=== PATIENT | male | born 1935 | race Caucasian/White ===

== ENCOUNTER 2018-06-05 11:52 | Emergency (ER) | payer MEDICARE, OTHER ==
[2018-06-05 12:06] VITALS: BP 172/110
[2018-06-05] MEDS ORDERED: Benzoin Compound STICK TOPICAL ONE (13:25)
--- NOTE | 2018-06-05 13:41 | UC ---
Laceration HPI - HPI Summary HPI Summary: 83 yo male was on b-ball court with grand kids tried to catch a ball and slipped sustained a laceration to vtx of scalp no ALVAREZ no LOC denies other injury no neck pain - History Of Current Complaint Chief Complaint: UCLaceration Stated Complaint: HEAD INJURY Time Seen by Provider: 06/05/18 12:52 Hx Obtained From: Patient Laceration Location: Head Mechanism Of Injury: Blunt Trauma Onset/Duration: Sudden Onset Severity: Mild Pain Intensity: 0 Pain Scale Used: 0-10 Numeric Head: 1 - irregular laceration - Allergies/Home Medications Allergies/Adverse Reactions: Allergies Allergy/AdvReac Type Severity Reaction Status Date / Time No Known Allergies Allergy Verified 11/17/12 19:25 PMH/Surg Hx/FS Hx/Imm Hx Previously Healthy: Yes - Surgical History Surgical History: None - Family History Known Family History: Positive: Hypertension - Social History Alcohol Use: Occasionally Substance Use Type: None Smoking Status (MU): Former Smoker Review of Systems All Other Systems Reviewed And Are Negative: Yes Constitutional: Positive: Negative Skin: Positive: Negative Eyes: Positive: Negative ENT: Positive: Negative Respiratory: Positive: Negative Cardiovascular: Positive: Negative Gastrointestinal: Positive: Negative Genitourinary: Positive: Negative Motor: Positive: Negative Neurovascular: Positive: Negative Musculoskeletal: Positive: Negative Neurological: Positive: Negative Psychological: Positive: Negative Physical Exam Triage Information Reviewed: Yes Appearance: Well-Appearing, No Pain Distress, Well-Nourished Vital Signs: Initial Vital Signs Temp 98.8 F 06/05/18 12:03 Pulse 93 06/05/18 12:03 Resp 16 06/05/18 12:03 BP 172/110 06/05/18 12:03 Pulse Ox 100 06/05/18 12:03 Vital Signs Reviewed: Yes Eyes: Positive: Conjunctiva Clear ENT: Negative: Hearing grossly normal - decreased, Nasal congestion, Nasal drainage, Trismus, Muffled voice, Hoarse voice Neck: Positive: Supple, Nontender, No Lymphadenopathy Respiratory: Positive: Lungs clear, Normal breath sounds, No respiratory distress, No accessory muscle use Cardiovascular: Positive: RRR, No Murmur Musculoskeletal: Positive: ROM Intact, No Edema Neurological: Positive: Alert, Muscle Tone Normal Psychological Exam: Normal Skin Exam: Other - see image Laceration Repair - Laceration Repair 1 Description: Irregular Laceration Size After Repair: Length (cm) - 1.9, Width (mm) - 2, Depth (mm) - 3 Modified For Repair: No Cleansing Completed Via Routine Prep: Yes Irrigation With Pressure Irrigation Device: Yes Closure Material: SteriStrips Laceration Course/Dx - Diagnosis Provider Diagnosis: Scalp laceration Discharge - Sign-Out/Discharge Documenting (check all that apply): Patient Departure All imaging exams completed and their final reports reviewed: No Studies - Discharge Plan Condition: Stable Disposition: HOME Patient Education Materials: [place] (ED) Referrals: Nato Bello MD [Primary Care Provider] - If Needed - Billing Disposition and Condition Condition: STABLE Disposition: Home
== END 2018-06-05 13:45 | disposition home or self-care (01) ==
LOC: UCEAST 11:52
DX: S01.01XA Laceration without foreign body of scalp, initial encounter (principal); W01.0XXA Fall on same level from slipping, tripping and stumbling without subsequent striking against object, initial encounter; Y93.67 Activity, basketball; Y92.310 Basketball court as the place of occurrence of the external cause; Z87.891 Personal history of nicotine dependence
CPT/HCPCS: 99212; G0463

== ENCOUNTER 2019-05-08 09:19 | Inpatient (IN) | payer MEDICARE, OTHER ==
[2019-05-08 09:55] LABS: Urine Appearance Cloudy; Urine Bilirubin Negative (Negative); Urine Blood Negative (Negative); Urine Color Yellow; Urine Glucose Negative (Negative); Urine Ketones Negative (Negative); Urine Nitrite Negative (Negative); Urine Protein Negative (Negative); Urine Urobilinogen Negative (Negative)
--- NOTE | 2019-05-08 10:16 | ED ---
Altered Mental Status - HPI Summary HPI Summary: This patient is an 83 year old male accompanied by his daughter presenting [place] [facility] with increased confusion over the last few days. Daughter states he has an infection in his left arm and is taking augmentin for it. Daughter states she contacted PCP who stated it is likely dehydration. Denies vomiting, diarrhea and fever. Patient has a Hx of mild dementia. She states he had pneumonia last year and experienced the same type of confusion when he was undergoing treatment, states the physician at the time states it may have been secondary to fever. 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 Hx From Patient Unobtainable Due To: Dementia Aggravating Factor(s): Medication Change - Allergies/Home Medications Allergies/Adverse Reactions: Allergies Allergy/AdvReac Type Severity Reaction Status Date / Time shellfish derived Allergy Anaphylatic Verified 05/08/19 09:37 Shock Home Medications: Home Medications Aspirin TAB* [Aspirin 325 MG TAB*] 325 mg PO DAILY 12/09/14 [History Confirmed 05/08/19] [place]-3/Dha/Epa/Fish Oil [Fish Oil] 1,200 mg PO DAILY 12/09/14 [History Confirmed 05/08/19] Amoxicillin/Clavulanate TAB* [Augmentin TAB 875*] 875 mg PO BID 05/08/19 [ History Confirmed 05/08/19] Bicalutamide (NF) [Casodex (NF)] 50 mg PO DAILY 05/08/19 [History Confirmed 06/23] Ulisses/D3/Mag11/Zinc/Manager Advertising/Simone/Bor [Caltrate 600+D Plus] 1 tab PO DAILY 05/08/19 [ History Confirmed 05/08/19] Citalopram TAB* [CeleXA TAB*] 20 mg PO DAILY 05/08/19 [History Confirmed ] Losartan Potassium [Cozaar] 50 mg PO DAILY 05/08/19 [History Confirmed 05/08/19] Naproxen Sodium [Aleve] 220 mg PO DAILY PRN 05/08/19 [History Confirmed 05/08/19 ] PMH/Surg Hx/FS Hx/Imm Hx Endocrine/Hematology History: Denies: Hx Diabetes Cardiovascular History: Denies: Hx Hypertension, Hx Pacemaker/ICD History: Denies: Hx Renal Disease Sensory History: Denies: Hx Hearing Aid Neurological History: Denies: Other Neuro Impairments/Disorders Psychiatric History: Denies: Hx Panic Disorder - Cancer History Cancer Type, Location and Year: PROSTATE CA (TREATED) - Surgical History Surgery Procedure, Year, and Place: 1969 PILONIDAL CYST REMOVED Infectious Disease History: No Infectious Disease History: Denies: Traveled Outside the [place] in Last 30 Days - Family History Known Family History: Positive: Hypertension - Social History Alcohol Use: Occasionally Substance Use Type: Reports: None Smoking Status (MU): Former Smoker Review of Systems Negative: Fever Negative: Vomiting, Diarrhea Neurological/Mental Status: Other - Confusion All Other Systems Reviewed And Are Negative: Yes Physical Exam - Summary Physical Exam Summary: Constitutional: Well-developed, Well-nourished, Alert. (-) Distressed Skin: Warm, Dry HENT: Normocephalic; Atraumatic Eyes: Conjunctiva normal Neck: Musculoskeletal ROM normal neck. (-) JVD, (-) Stridor, (-) Tracheal deviation Cardio: Rhythm regular, rate normal, Heart sounds normal; Intact distal pulses; The pedal pulses are 2+ and symmetric. Radial pulses are 2+ and symmetric. (-) Murmur Pulmonary/Chest wall: Effort normal. (-) Respiratory distress, (-) Wheezes, (-) Rales Abd: Soft. (-) Tenderness, (-) Distension, (-) Guarding, (-) Rebound Musculoskeletal: (-) Edema Lymph: (-) Cervical adenopathy Neuro: Alert, Oriented to person place and month, no focal deficits. Psych: Mood and affect Normal Triage Information Reviewed: Yes Vital Signs On Initial Exam: Initial Vitals Temp Pulse Resp BP Pulse Ox 97.4 F 112 16 158/82 94 05/08/19 09:32 05/08/19 09:32 05/08/19 09:32 05/08/19 09:32 05/08/19 09:32 Vital Signs Reviewed: Yes - Saravanan Coma Scale Best Eye Response: 4 - Spontaneous Best Motor Response: 6 - Obeys Commands Best Verbal Response: 5 - Oriented Coma Scale Total: 15 Procedures - Sedation Patient Received Moderate/Deep Sedation with Procedure: No Diagnostics - Vital Signs Vital Signs Temp Pulse Resp BP Pulse Ox 05/08/19 09:32 97.4 F 112 16 158/82 94 - Laboratory Lab Results: Lab Results 05/08/19 Range/Units 09:35 Urine Color Yellow Urine Appearance Cloudy Urine pH 7.0 (5-9) Ur Specific [place] 1.020 (1.010-1.030) Urine Protein Negative (Negative) Urine Ketones Negative (Negative) Urine Blood Negative (Negative) Urine Nitrate Negative (Negative) Urine Bilirubin Negative (Negative) Urine Urobilinogen Negative (Negative) Ur Leukocyte Esterase Negative (Negative) Urine Glucose Negative (Negative) Result Diagrams: 05/08/19 10:42 05/08/19 10:42 Lab Statement: Any lab studies that have been ordered have been reviewed, and results considered in the medical decision making process. - CT BRAIN CT CT Interpretation Completed By: Radiologist Summary of CT Findings: IMPRESSION: There is no evidence of intracranial mass or hemorrhage is noted. THIS REPORT WAS REVIEWED BY ED PHYSICIAN. - EKG 1032 Cardiac Rate: NL - 90 BPM EKG Rhythm: Sinus Rhythm Summary of EKG Findings: No STEMI. ED Physician has reviewed and interpreted this EKG. Altered Mental Statu Course/Dx - Course Course Of Treatment: This patient is an 83 year old male accompanied by his daughter presenting to [facility] with increased confusion over the last few days. Daughter states he has an infection in his left arm and is taking augmentin for it. Daughter states she contacted PCP who stated it is likely dehydration. Denies vomiting, diarrhea and fever. Patient has a Hx of mild dementia. She states he had pneumonia last year and experienced the same type of confusion when he was undergoing treatment, states the physician at the time states it may have been secondary to fever. UA negative. Bloodwork abnormalities include Hct 41, absolute lymphs 0.9, absolute monos 1, BUN 29, creatinine 1.29, BUN/ creatinine 22.5, glucose 123, ALT 6. During ED course, patient received fluids. EKG showed NSR with rate of 90 BPM, no STEMI. BRAIN CT IMPRESSION: There is no evidence of intracranial mass or hemorrhage is noted. Patient confusion possibly secondary to dehydration and/or possibly adverse effect of augmentin, will continue hydration and discontinue the antibiotic. Will reassess. Patient to be admitted to hospitalist, Dr. Perea. Dr. Greco to consult on the patient. - Diagnoses Provider Diagnoses: Dehydration, Confusion - Provider Notifications Discussed Care Of Patient With: Fahed Saada Time Discussed With Above Provider: 13:37 Instructed by Provider To: Other - Patient's case was discussed with Dr. Greco, Dr. Greco agrees to consult on the patient. 1359 - Patient's case was discussed with Dr. Perea, Dr. Perea accepts for admission. Discharge ED - Sign-Out/Discharge Documenting (check all that apply): Patient Departure - admit - Discharge Plan Condition: Stable Disposition: ADMITTED TO [facility] Referrals: Nato Bello MD [Primary Care Provider] - - Billing Disposition and Condition Condition: STABLE Disposition: Admitted to [facility] - Attestation Statements Document Initiated by Candy: Yes Documenting Scribe: Juan Daniel Leo Provider For Whom Candy is Documenting (Include Credential): Migel Godwin DO Scribdelmy Attestation: Juan Daniel Pineda, bhumikaibed for Migel Godwin DO on 06/23 at 1434. Scribe Documentation Reviewed: Yes Provider Attestation: The documentation as recorded by the candy, Juan Daniel Leo accurately reflects the service I personally performed and the decisions made by Migel parker DO Status of Scribdelmy Document: Viewed
[2019-05-08] MEDS ORDERED: NS 0.9% 1000 ML** 1,000 ML IV ONE ×2 (10:25→13:42)
[2019-05-08 10:48] LABS: ABS Eosinophils 0.2 10^3/ul (0-0.6); ABS Lymphocytes 0.9 10^3/ul (1.0-4.8); ABS Neutrophils 7.2 10^3/ul (1.5-7.7); Eosinophil % 1.9 %; Hematocrit 41 % (42-52); Lymphocyte % 9.8 %; Mean Corpuscular HGB Conc 34 g/dL (31-36); Mean Corpuscular Hemoglobin 30 pg (27-31); Mean Corpuscular Volume 87 fL (80-94); Mean Platelet Volume 7.9 fL (7.4-10.4); Platelet Count 226 10^3/uL (150-450); Red Blood Count 4.68 10^6 /uL (4.18-5.48); Red Cell Distribution Width 13 % (10-15); White Blood Count 9.4 10^3/uL (3.5-10.8)
[2019-05-08 11:12] LABS: Albumin 3.8 g/dL (3.2-5.2); Albumin/Globulin Ratio 1.3 (1-3); BUN/Creatinine Ratio 22.5 (8-20); Calcium 9.2 mg/dL (8.6-10.3); EGFR African American 64.7 (>60); EGFR Non-African American 53.5 (>60); Potassium 4.4 mmol/L (3.5-5.0); Total Bilirubin 0.7 mg/dL (0.2-1.0); Total Protein 6.8 g/dL (6.4-8.9)
[2019-05-08 11:13] LABS: Troponin I 0.02 ng/mL (<0.03)
[2019-05-08 11:35] LABS: TSH (Thyroid Stimulating Horm) 2.24 mcIU/mL (0.34-5.60)
[2019-05-08] MEDS ORDERED: hydrALAZINE IV* 20 MG/ML VIAL IV SLOW PU ONE (15:50)
[2019-05-08] MEDS ORDERED: NS 0.9% 1000 ML** 1,000 ML IV SCH (17:45)
[2019-05-08] MEDS ORDERED: hydrALAZINE IV* 20 MG/ML VIAL IV SLOW PU PRN (17:46)
--- NOTE | 2019-05-08 17:50 | CONS ---
NEUROLOGY CONSULTATION NOTE: DATE OF CONSULT: 05/08/19 CONSULTING PROVIDER: Dr. Migel Godwin. REASON FOR CONSULT: Worsening confusion. CHIEF COMPLAINT: "I had trouble with my memory." HISTORY OF PRESENT ILLNESS: Mr. Rajinder Toure is an 83-year-old right-handed man with a history of mild cognitive impairment, who sees Dr. Eamon Segura, who was recently started on Augmentin for left upper extremity cellulitis after a cat scratch/bite. The patient presented to [facility] with symptoms of worsening memory and intermittent confusion that started 05/06/2019. According to the family history, the patient came out of the bedroom on Monday and asked his where everybody is located. The patient lives with his spouse and a cat and there are no other family members around. He also asked his how everyone did on their spelling test. He asked where the guys were. He has associated symptoms of restless. His confusion has waxed and waned over the past few days, and seems to be worse at night. He does not wear a watch, but thought that he lost his watch and he was looking around for it throughout the day yesterday. According to his , the patient went to religious on Monday and met a man who recently lost his . The patient has been emotional and feeling sad since he talked to the as he was having flashbacks of when his mother . Currently, the patient does not know why he is in the hospital. He thinks he is in the hospital because he has trouble walking. He does have night dreams. He does not have any REM behavior sleep disorder. He has no tremors or falls. He denied any visual or auditory hallucinations. He denied any focal weakness or paresthesia. PAST MEDICAL HISTORY: Hypertension, prostate cancer, mild cognitive impairment , pilonidal cyst removal. MEDICATIONS: 1. Aspirin 325. 2. Citalopram 20 mg p.o. daily. 3. Amoxicillin/clavulanate 875 mg p.o. b.i.d. 4. Naproxen 220 mg p.o. daily. 5. Losartan 50 mg p.o. daily. 6. Bicalutamide 50 mg p.o. daily, which he was started on approximately 2 weeks ago. ALLERGIES: To SHELLFISH. SOCIAL HISTORY: The patient was a banker. He is good with numbers. He is . He denied any tobacco use. He used to smoke tobacco pipes on the weekend 25-35 years ago. At baseline, the patient is able to function and perform all activities of daily living. He feeds himself. He is able to bathe and drives to religious. He has forgetfulness mostly to names, constantly asks about his doctor appointments , and asks where he is going when being driven to places. REVIEW OF SYSTEMS: A 14-point review of systems was obtained and otherwise negative except for what was mentioned in the HPI. PHYSICAL EXAM: Vital Signs: Temperature of 97.4, heart rate of 101, respiratory rate of 31, oxygen saturation of 94%, blood pressure of 179/108. General: The patient is in no acute distress, well-developed, well-diminished elderly man, who is pleasantly demented. Head: Atraumatic, normocephalic without any obvious abnormality. Cardiovascular: Regular rate and rhythm with normal S1, S2. Respiratory: Clear to auscultation bilaterally with no wheezing or rhonchi. Extremities: Normal range of motion with no cyanosis. Skin: Mild patchiness on the left distal upper extremities, mostly in the extensor surface without signs of pus or erythema. Psychiatric: Affect is broad, normal mood, easy to establish rapport. Neurological Examination: Mental Status: Awake, alert, and oriented to person and place where he reported that he is in [facility], but not to date or time. He has no evidence of fluency difficulties or impairment. He has no problems with word finding or repetition. Cranial Nerves: Pupils are equal, round, and reactive to light. Extraocular muscles are intact. Normal sensation in the face bilaterally. No facial asymmetry. Tongue is symmetric and midline with no atrophy or fasciculation. Motor Examination: 5/5 strength in the upper and lower extremities with no evidence of hyperreflexia. Tone is normal. Reflexes 1+ throughout, 0 at the ankles bilaterally. Coordination: Normal mjzwbi-wr-ajzn and comm-wg-msla testing. Gait: Wide based gait. Normal stance. No ataxia. DIAGNOSTIC STUDIES/LAB DATA: WBC of 9.4, hemoglobin of 14, hematocrit of 41, platelet count of 226. Sodium of 136, potassium of 4.4, BUN of 29, creatinine of 1.29, BUN/creatinine ratio of 22.5, glucose of 123. AST and ALT are normal. Vitamin B12 is 510. TSH is 2.24. Urinalysis, negative for pyuria. CT head without contrast showed diffuse involutional changes with cortical atrophy. There is no evidence of mass effect or hemorrhage. ASSESSMENT AND RECOMMENDATIONS: Mr. Rajinder Toure is an 83-year-old man who has mild cognitive impairment, who presented to the [facility] ER with a 3- day history of intermittent confusion and worsening memory. The patient was found to be dehydrated and in acute kidney injury. He was recently put on Augmentin for cellulitis. The patient has acute metabolic and toxic encephalopathy manifesting as delirium related to the metabolic derangement and dehydration. He has no lateralizing neurological deficits to suspect a stroke. He has not had any loss of consciousness or seizure like activity to suspect a seizure. He also has no evidence of nuchal rigidity or headaches to suspect meningitis. I discussed my findings with the ER team as well as Dr. Perea. The patient should be hydrated adequately. Please control his blood pressure as he may also have a component of hypertensive encephalopathy. I advised the patient and his spouse to come back immediately if his symptoms worsen or he does not improve within the next few days. We should not continue Augmentin at this time. The patient should not be driving due to his memory impairment. This can be reassessed as an outpatient by Dr. Segura. I discussed this plan with the patient's spouse who was amenable to taking the patient home today. [id number]/[facility] #: [id number] MTDD
--- NOTE | 2019-05-08 17:54 | ED ---
Progress - Progress Note Progress Note: 154 - After evaluation by Dr. Greco, he recommends the patient be discharged to home and managed on out-patient basis. Hospitalist agrees with this consultation. Patient to be discharged to home. 1722 - While attempting to discharge the patient, patient became SOB and tachycardic. CXR, repeat EKG, and repeat troponin ordered. CXR IMPRESSION: NO ACTIVE CARDIOPULMONARY DISEASE. EKG showed sinus tachycardia with rate of 121 BPM, RBBB. Repeat trop is pending at this time. Patient's clinical status was discussed with Dr. Perea once more. Dr. Perea accepts for admission. - EKG/XRAY/CT EKG: RBBB XRAY: chest - see above Course/Dx - Course Course Of Treatment: 1548 - After evaluation by Dr. Greco, he recommends the patient be discharged to home and managed on out-patient basis. Hospitalist agrees with this consultation. Patient to be discharged to home. 172 - While attempting to discharge the patient, patient became SOB and tachycardic. CXR, repeat EKG, and repeat troponin ordered. CXR IMPRESSION: NO ACTIVE CARDIOPULMONARY DISEASE. EKG showed sinus tachycardia with rate of 121 BPM, RBBB. Repeat trop is pending at this time. Patient's clinical status was discussed with Dr. Perea once more. Dr. Perea accepts for admission. - Diagnoses Provider Diagnoses: Dehydration, Confusion Discharge ED - Sign-Out/Discharge Documenting (check all that apply): Patient Departure - admit - Discharge Plan Condition: Stable Disposition: ADMITTED TO [facility] Patient Education Materials: Dehydration (ED), Altered Mental Status (ED) Referrals: Nato Bello MD [Primary Care Provider] - 3 Days Additional Instructions: PLEASE RETURN TO ED FOR ANY NEW OR WORSENING SYMPTOMS. PLEASE FOLLOW UP WITH YOUR PRIMARY CARE PHYSICIAN WITHIN THREE DAYS. - Billing Disposition and Condition Condition: STABLE Disposition: Admitted to [facility] - Attestation Statements Document Initiated by Joi: Yes Documenting Scribe: KAVIN RAINES Provider For Whom Joi is Documenting (Include Credential): SHORTY UPTON DO Scribe Attestation: KAVIN Pineda scribed for SHORTY UPTON DO on 05/08/19 at 1838. Scribe Documentation Reviewed: Yes Provider Attestation: The documentation as recorded by the KAVIN gupta accurately reflects the service I personally performed and the decisions made by me, SHORTY UPTON, DO Status of Joi Document: Viewed
[2019-05-08 18:29] LABS: Troponin I 0.03 ng/mL (<0.03)
[2019-05-08 18:32] LABS: Influenza A Molecular Negative (Negative); Influenza B Molecular Negative (Negative)
[2019-05-08 18:45] LABS: C Reactive Protein 97.26 mg/L (<8.01)
--- NOTE | 2019-05-08 19:53 | HP ---
CC: Dr. Bello* HISTORY AND PHYSICAL: DATE OF ADMISSION: 05/08/19 PRIMARY CARE PROVIDER: Dr. Bello. NEUROLOGIST: Dr. Segura. CHIEF COMPLAINT: Altered mental status. HISTORY OF PRESENT ILLNESS: Mr. Toure is an 83-year-old male who has a history of mild dementia though his states he typically would not know the month but does know this month because it is his birthday, who presents to the emergency room with increased confusion. The patient was diagnosed with cellulitis of the left upper extremity last week. He was started on Augmentin. He has taken 5 days' worth of the antibiotic and it was noted that the erythema had improved. The patient, however, was noted to have increased confusion on 05/06/19 in the evening. The evening prior to admission, the patient was noted to be quite breathless. He was very confused not knowing where everybody was. On the morning of admission, the patient was noted to be similarly confused as to last evening. He was not recognizing some of his family members. His did not notice any focal weakness, facial droop, or slurred speech. She did not witness any seizure like activity. She has not noted any fevers or chills. She does note that his appetite as well as liquid intake has been decreased since Monday. The patient himself states that he is feeling okay currently. He denies any shortness of breath at this point. After my evaluation and Dr. Greco's evaluation, it was felt that perhaps the Augmentin was leading to the patient's confusion in the setting of some mild dehydration. The plan was to infuse the second liter of IV fluid and have the patient go home to follow up with Dr. Bello. While the second liter of fluid was infusing, the patient suddenly became very agitated and squirming around in the bed. He complained of feeling short of breath. The nurse listened to his lungs and he was heard to have crackles bibasilarly. The patient's temperature was also noted to be mildly elevated at 99.5 and he became quite tachycardic, which he was not previously. Because of the sudden changes while having the IV fluid infusion, the decision was made to admit the patient under observation status for altered mental status and tachycardia. PAST MEDICAL HISTORY: 1. Dementia. 2. History of prostate cancer - this is a recurrence. 3. Depression. 4. Hypertension. PAST SURGICAL HISTORY: Pilonidal cyst removal. MEDICATIONS: 1. Casodex 50 mg p.o. daily. 2. Celexa 20 mg p.o. daily. 3. Augmentin 875 mg p.o. b.i.d. 4. Naproxen 220 mg p.o. daily p.r.n. pain. 5. Losartan 50 mg p.o. daily. 6. [place]-3 fish oil 1200 mg p.o. daily. 7. Aspirin 325 mg p.o. daily. 8. Caltrate Plus D 1 tab p.o. daily. ALLERGIES: SHELLFISH. FAMILY HISTORY: Mom had colon cancer, dementia but ultimately of "old age. " Dad had lung cancer. SOCIAL HISTORY: The patient is a former pipe smoker. He would smoke pipe on the weekends, he quit at least 25 years ago. He drinks alcohol rarely. 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 His Karuna is his healthcare proxy. REVIEW OF SYSTEMS: The patient is able to deny shortness of breath and pain but otherwise is too confused to correctly answer my questions. PHYSICAL EXAMINATION GENERAL: The patient is a well-developed elderly male seen sitting up in the stretcher, in no acute distress. VITAL SIGNS: Blood pressure 183/88, pulse 120, respiration 20, temp 99.5, O2 sat 93% on room air. HEENT: Pupils are equal. Extraocular muscles are intact. Oropharynx is clear. Oral mucosa is somewhat dry. There is no submandibular, cervical, or supraclavicular adenopathy. PULMONARY: Lungs initially were clear to auscultation bilaterally. On subsequent evaluation, there are bibasilar crackles. CARDIAC: Normal S1, S2. Heart rate is tachycardic. He has a 2/6 systolic murmur heard best at the right upper sternal border. There is no lower extremity edema. ABDOMEN: Bowel sounds are present. Abdomen is soft, nontender, nondistended. MUSCULOSKELETAL: There is no cyanosis or clubbing of the digits. There is full active range of motion of all 4 extremities. NEUROLOGIC: Cranial nerves II through XII are grossly intact. Sensation is intact light touch throughout. Strength is 5/5 and symmetric in both upper and lower extremities bilaterally. PSYCH: The patient is alert. He is oriented to being in the hospital. He is otherwise seeming to be confused. SKIN: There is a small area of erythema just above the left wrist that has become more red and warm as he has been in the emergency room. There are otherwise no rashes. DIAGNOSTIC STUDIES/LAB DATA: WBC 9.4, hemoglobin 14.0, hematocrit 41, platelets 226. Sodium 136, potassium 4.4, chloride 103, CO2 of 27, BUN 29, creatinine 1.29, glucose 123, calcium 9.2, magnesium 2.0. Bilirubin 0.7, AST 13 , ALT 6, alk phos 54. Troponin 0.02. Albumin 3.8. B12 510. TSH 2.24. Urinalysis reveals cloudy urine with specific gravity of 1.020. Influenza A and B pending. CT brain: There is no evidence of intracranial mass or hemorrhage. Chest x-ray: No active cardiopulmonary disease. ASSESSMENT AND PLAN: Mr. Toure is an 83-year-old male who has a history of mild dementia, hypertension, and prostate cancer, who presented to the emergency room with increased confusion, however, baseline and while in the ER developed significant tachycardia and crackles on exam. 1. Altered mental status. Initially, it was felt that this may have been related to his Augmentin as that was the only new medication and does have a rare chance of causing confusion. As time has gone on in the emergency room, however, I am concerned more that the patient may be infected leading to encephalopathy. The patient will be worked up for possible sources of infection. His mental status will be followed. 2. Tachycardia. The patient suddenly developed tachycardia in the ER while receiving IV fluid hydration. It is possible that he developed some pulmonary edema secondary to this, however, his chest x-ray was negative for this. I am going to, however, hold off on any further IV fluid hydration. We will monitor his heart rate on telemetry. It is also possible the tachycardia may be related to infection. His temperature was mildly elevated at 99.5 just prior to the tachycardia developing. 3. Left wrist cellulitis. The patient has received 5 days of antibiotic therapy for this. It does appear to be worse now than it did just a few hours ago. We will start ceftriaxone 1 g IV daily. We will follow up the area of erythema tomorrow. Blood cultures have been obtained. We will add on a CRP. 4. Hypertension. The patient's blood pressure is markedly elevated. His states that he did take his losartan earlier this morning. He will have p.r.n. hydralazine tonight. If his blood pressure remains markedly elevated, amlodipine could be added as a secondary agent. 5. Prostate cancer. We will continue Casodex if the pharmacy is able to supply it. 6. Depression. I am going to hold his citalopram for now, but this can likely be resumed on discharge. 7. DVT prophylaxis: According to the Adult Thrombosis Prophylaxis Risk Factor Assessment Guide, the patient has a total risk factor score of 4 making him high risk. He will be placed on heparin 5000 units subcutaneous q.8 hours. 8. Code status is full. TIME SPENT: Sixty five minutes was spent admitting this patient. [id number]/CPS #: [id number] RAUL
[2019-05-08] MEDS: cefTRIAXone(*) 1 GM in NS 0.9% 50 ML* 50 ML IVPB SCH (20:30)
[2019-05-08] MEDS: Heparin VIAL(*) 5000 UNITS/ML VIAL (FIVE THOUSAND) SUBCUT SCH (23:17)
[2019-05-09] MEDS: Heparin VIAL(*) 5000 UNITS/ML VIAL (FIVE THOUSAND) SUBCUT SCH ×3 (05:31→21:19)
[2019-05-09 06:26] LABS: ABS Eosinophils 0.1 10^3/ul (0-0.6); ABS Lymphocytes 1.5 10^3/ul (1.0-4.8); ABS Neutrophils 7.5 10^3/ul (1.5-7.7); Eosinophil % 0.6 %; Hematocrit 40 % (42-52); Hemoglobin 13.6 g/dL (14.0-18.0); Lymphocyte % 15.3 %; Mean Corpuscular HGB Conc 34 g/dL (31-36); Mean Corpuscular Hemoglobin 30 pg (27-31); Mean Corpuscular Volume 88 fL (80-94); Mean Platelet Volume 7.5 fL (7.4-10.4); Platelet Count 232 10^3/uL (150-450); Red Blood Count 4.54 10^6 /uL (4.18-5.48); Red Cell Distribution Width 13 % (10-15); White Blood Count 10.1 10^3/uL (3.5-10.8)
[2019-05-09 06:48] LABS: Anion Gap 8 mmol/L (2-11); BUN/Creatinine Ratio 20.8 (8-20); Blood Urea Nitrogen 26 mg/dL (6-24); CO2 Carbon Dioxide 24 mmol/L (22-32); Calcium 9.1 mg/dL (8.6-10.3); Chloride 105 mmol/L (101-111); EGFR African American 67.1 (>60); EGFR Non-African American 55.4 (>60); Glucose 113 mg/dL (70-100); Potassium 4.2 mmol/L (3.5-5.0); Sodium 137 mmol/L (135-145)
[2019-05-09 06:50] LABS: Troponin I 0.21 ng/mL (<0.03)
[2019-05-09] MEDS: BICALUTAMIDE 50 MG PO SCH (08:30)
[2019-05-09] MEDS: Losartan TAB* 25 MG PO SCH (08:30)
[2019-05-09] MEDS: Aspirin TAB* 325 MG PO SCH (08:30)
[2019-05-09] MEDS ORDERED: NS 0.9% 1000 ML** 1,000 ML IV SCH (08:45)
[2019-05-09 10:04] LABS: Troponin I 0.19 ng/mL (<0.03)
--- NOTE | 2019-05-09 10:43 | ECHO ---
*[facility]* [place] [address] Fax #: [phone] Transthoracic Echocardiogram Patient: Rajinder Toure : 1935 Study Date: 05/09/2019 Age: 83 Gender: M HR: 117 bpm Height: 69 in /175.3 cm BSA: 1.98 m^2 Weight: 179.6 lb /81.6 kg BMI: 26.6 kg/m^2 *Gambling Dealer: * Dary Garcia [facility] *Referring Physician: * Rylee PereaReading Physician: * Iván Perez MD Indications: Congestive Heart Failure. History: Prostate Cancer. Dementia. Murmur. Risk factors: Hypertension. Conclusions Summary: - Left ventricle: The cavity size is below normal. Wall thickness is moderately increased. Systolic function is hyperdynamic. The estimated ejection fraction is >85%. Wall motion is normal; there are no regional wall motion abnormalities. - Right ventricle: The cavity size is normal. Systolic function is normal. Systolic pressure is moderately increased. - Mitral valve: The Mitral valve annulus appears moderately to severely calcified. The leaflets are mildly calcified. Non-rheumatic mitral stenosis. Hyperdynamic LVEF may overestimate severity (could be less severe) based on mean gradient The findings are consistent with moderate to severe stenosis. The pressure half-time is 120 ms. The mean diastolic gradient is 11.0 mm Hg. The valve area is 1.6 cm^2. - Aortic valve: The findings are consistent with mild to moderate stenosis. The peak systolic velocity is 3.1 m/sec. The mean systolic gradient is 23.0 mm Hg. The valve area by the velocity-time integral method is 1.66 cm^2. - Pulmonary arteries: Systolic pressure is moderately increased. Recommendations: None prior for comparison at time of interpretation. Study data: Transthoracic echocardiogram. Procedure: Transthoracic echocardiography was performed. Image quality was fair. Complete 2D, spectral Doppler, and color flow Doppler. Location: Bedside. Patient status: Inpatient. Patient room number: 439. Rhythm: Tachycardia. Findings Left ventricle: The cavity size is below normal. Wall thickness is moderately increased. Systolic function is hyperdynamic. The estimated ejection fraction is >85%. Wall motion is normal; there are no regional wall motion abnormalities. Left ventricular diastolic function parameters are indeterminate. Right ventricle: The cavity size is normal. Systolic function is normal. Systolic pressure is moderately increased. Left atrium: The atrium is mildly dilated. Right atrium: The atrium is normal in size. Mitral valve: The Mitral valve annulus appears moderately to severely calcified. The leaflets are mildly calcified. Non-rheumatic mitral stenosis. Hyperdynamic LVEF may overestimate severity (could be less severe) based on mean gradient The findings are consistent with moderate to severe stenosis. There is trace to mild regurgitation. Aortic valve: The annulus is calcified. The valve is trileaflet. The leaflets are moderately calcified. Cusp separation is reduced. The findings are consistent with mild to moderate stenosis. There is trace regurgitation. Tricuspid valve: The leaflets are normal thickness. There is no evidence of stenosis. There is mild-moderate regurgitation. Pulmonic valve: The leaflets are normal thickness. There is no evidence of stenosis. There is trace regurgitation. Aorta: Aortic root: The aortic root is appears normal. Ascending aorta: The ascending aorta is appears normal. Aortic arch: The aortic arch is appears normal. Pericardium: There is no significant pericardial effusion. Pulmonary arteries: The main pulmonary artery is normal-sized. Systolic pressure is moderately increased. Systemic veins: Inferior vena cava: The vessel is normal in size. There is (>= 50%) respiratory change in the IVC dimension. Measurements Left ventricle Value Ref Aortic valve Value Ref LESVIA, LAX (L) 2.3 cm 4.2 - 5.8 Fox diam, ED 1.9 cm ----- ESD, LAX (L) 1.5 cm 2.5 - 4.0 Fox diam/bsa, ED 1.0 cm/m^2 ----- FS, LAX 34 % 25 43 Peak v, S 3.1 m/sec ----- PW, ED, LAX (H) 1.4 cm 0.6 - 1.0 VTI, S 51.0 cm ----- FS 34 % 25 - 43 Mean grad, S 23.0 mm Hg ----- Mid-wall FS 5 % Peak grad, S 38.4 mm Hg ----- PW, ED (H) 1.4 cm 0.6 - 1.0 LVOT/AV, VTI ratio 0.53 ----- E', lat fox, TDI (L) 5.7 cm/sec >=10.0 GUIDO, VTI 1.66 cm^2 -- --- E/e', lat fox, 18 GUIDO, Vmax 1.51 cm^2 ----- TDI E', med fox, TDI (L) 5.1 cm/sec >=7.0 Mitral valve Value Re f E/e', med fox, 20 Peak E 1.01 m/sec ----- TDI Peak A 2.06 m/sec ----- E', avg, TDI 5.4 cm/sec Decel time 447 ms ----- E/e', avg, TDI (H) 19 <=14 PHT 120 ms -- --- Mean grad, D 11.0 mm Hg ----- LVOT Value Ref Peak grad, D 22.0 mm Hg ----- Diam, S 2.00 cm Peak E/A ratio 0.5 ----- Area 3.1 cm^2 MVA, PHT 1.9 cm^2 ----- Peak theodore, S 1.49 m/sec VTI, S 27.0 cm Pulmonic valve Value Ref Peak grad, S 9 mm Hg Peak v, S 1.35 m/sec ----- Mean grad, S 5 mm Hg Peak grad, S 7.0 mm Hg ----- SV 81 ml SV/bsa 41 ml/m^2 Tricuspid valve Value Ref TR peak v (H) 3.6 m/sec <=2.8 Ventricular septum Value Ref Peak RV-RA grad, S 52 mm Hg ----- IVS, ED (H) 1.8 cm 0.6 - 1.0 Aortic root Value Ref Right ventricle Value Ref Root diam 3.1 cm <4.1 LESVIA, LAX 2.9 cm LESVIA minor ax, A4C (H) 3.6 cm 1.9 - 3.5 Ascending aorta Value Ref mid AAo AP diam, S 3.3 cm ----- Pressure, S 55 mm Hg Aortic arch Value Ref Left atrium Value Ref Arch diam 2.1 cm ----- AP dim, ES 3.60 cm 3.00 - 4.00 Decending aorta Value Ref ML dim, A4C 4.1 cm Bibi peak theodore 0.72 m/sec ----- SI dim, A4C 4.3 cm Vol/bsa, ES, 1-p 25 ml/m^2 12 - 37 Pulmonary artery Value Ref A4C Pressure, S 48.0 mm Hg ----- Vol/bsa, ES, A/L (H) 39 ml/m^2 16 - 34 Inferior vena cava Value Ref Right atrium Value Ref Diam 1.6 cm ----- SI dim, ES 4.9 cm 3.4 - 5.3 ML dim, ES, A4C 3.5 cm 2.6 - 4.4 Estimated RAP 3 mm Hg Legend: (L) and (H) melanie values outside specified reference range. Prepared and electronically signed by Iván Perez MD 05/09/2019 10:43
[2019-05-09] MEDS ORDERED: Iodixanol* (CONTRAST) 320 MG/ML 100 ML SDV IV ONE (10:44)
--- NOTE | 2019-05-09 11:25 | CONSULT ---
Subjective Date of Service: 05/09/19 Interval History: Admission Date: 05/08/19 Consult date 05/09/[address] Bello Service: Hospitalist CC: Altered mental status Reason for consult: Abnormal ekg and blood work HISTORY OF PRESENT ILLNESS: Mr. Toure is an 83-year-old man with dementia. He is unable to provide a reliable ROS other than immediate symptoms and this was obtained from chart and his . He was admitted with confusion after being on augmentin for a hand infection. During hospitalization he was noted to be tachycardic and dyspneic. He denies any subjective dyspnea currently but appears tachypneic while laying in bed. He has no chest discomfort. Both his troponin levels and EKG are abnormal. PAST MEDICAL HISTORY: 1. Dementia. 2. History of prostate cancer 3. Depression. 4. Hypertension. PAST SURGICAL HISTORY: Pilonidal cyst removal. ALLERGIES: SHELLFISH. FAMILY HISTORY: Mom had colon cancer, dementia but ultimately of "old age. " Dad had lung cancer. SOCIAL HISTORY: The patient is a former pipe smoker. He would smoke pipe on the weekends, he quit at least 25 years ago. He drinks alcohol rarely. 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 His Karuna is his healthcare proxy. Medications Active Medications: Aspirin (Aspirin Tab*) 325 mg PO DAILY [facility] Last Admin: 05/09/19 08:30 Dose: 325 mg Bicalutamide (Casodex (Nf)) 50 mg PO DAILY [facility]; Protocol Last Admin: 05/09/19 08:30 Dose: 50 mg Heparin Sodium (Porcine) (Heparin Vial(*)) 5,000 units SUBCUT Q8HR [facility] Last Admin: 05/09/19 05:31 Dose: 5,000 units Hydralazine HCl (Apresoline Iv*) 10 mg IV SLOW PU Q6H PRN PRN Reason: SBP>170 Last Admin: 05/08/19 20:31 Dose: 10 mg Ceftriaxone Sodium 1 gm/ (Sodium Chloride) 50 mls @ 100 mls/hr IVPB Q24H [facility] Last Admin: 05/08/19 20:30 Dose: 100 mls/hr Sodium Chloride (Ns 0.9% 1000 Ml) 1,000 mls @ 75 mls/hr IV PER RATE [facility] Last Admin: 05/09/19 08:37 Dose: 75 mls/hr Losartan Potassium (Cozaar Tab*) 50 mg PO DAILY [facility] Last Admin: 05/09/19 08:30 Dose: 50 mg Home Medications: Aspirin TAB* [Aspirin 325 MG TAB*] 325 mg PO DAILY 12/09/14 [History Confirmed 05/08/19] [place]-3/Dha/Epa/Fish Oil [Fish Oil] 1,200 mg PO DAILY 12/09/14 [History Confirmed 05/08/19] Amoxicillin/Clavulanate TAB* [Augmentin TAB 875*] 875 mg PO BID 05/08/19 [ History Confirmed 05/08/19] Bicalutamide (NF) [Casodex (NF)] 50 mg PO DAILY 05/08/19 [History Confirmed 06/23] Ulisses/D3/Mag11/Zinc/Barrel Tester/Simone/Bor [Caltrate 600+D Plus] 1 tab PO DAILY 05/08/19 [ History Confirmed 05/08/19] Citalopram TAB* [CeleXA TAB*] 20 mg PO DAILY 05/08/19 [History Confirmed ] Losartan Potassium [Cozaar] 50 mg PO DAILY 05/08/19 [History Confirmed 05/08/19] Naproxen Sodium [Aleve] 220 mg PO DAILY PRN 05/08/19 [History Confirmed 05/08/19 ] Review of Systems - Measurements Intake and Output: Intake and Output Last 24 Hours 05/07/19 05/08/19 05/09/19 05/10/19 06:59 06:59 06:59 06:59 Intake Total 2049 360 Balance 2049 360 Weight 173 lb 1.6 oz Intake: IV Fluids 2000 IVPB 50 Oral 0 360 - Review of Systems Review of Systems Statement: Unable to fully obtain due to mental status Objective Vital Signs: Temp Pulse Resp BP Pulse Ox 98.1 F 97 20 125/71 93 05/09/19 03:20 05/09/19 03:20 05/09/19 03:20 05/09/19 03:20 05/09/19 03:20 Oxygen Devices in Use Now: None Appearance: not toxic appearing or acutely distressed Ears/Nose/Mouth/Throat: Clear Oropharnyx, Mucous Membranes Moist Neck: NL Appearance and Movements; NL JVP, Trachea Midline Respiratory: Symmetrical Chest Expansion and Respiratory Effort, Clear to Auscultation Cardiovascular: - - tachycardic, regular, 2/6 systolic murmur Abdominal: NL Sounds; No Tenderness; No Distention Extremities: No Edema Skin: No Rash or Ulcers Neurological: - - awake, alert Laboratory Results: 05/09/19 06:17 05/09/19 06:17 Total Bilirubin 0.70 mg/dL (0.2-1.0) 05/08/19 10:42 AST 13 U/L (13-39) 05/08/19 10:42 ALT 6 U/L (7-52) L 05/08/19 10:42 Alkaline Phosphatase 54 U/L (34-104) 05/08/19 10:42 Total Protein 6.8 g/dL (6.4-8.9) 05/08/19 10:42 Albumin 3.8 g/dL (3.2-5.2) 05/08/19 10:42 Globulin 3.0 g/dL (2-4) 05/08/19 10:42 Albumin/Globulin Ratio 1.3 (1-3) 05/08/19 10:42 TSH 2.24 mcIU/mL (0.34-5.60) 05/08/19 10:42 05/08/19 05/08/19 05/09/19 10:42 17:56 06:17 Troponin I 0.02 0.03 H* 0.21 H* 05/09/19 09:25 Troponin I 0.19 H* Diagnostic Imaging: Transthoracic Echocardiogram Study Date: 05/09/2019 Summary: - Left ventricle: The cavity size is below normal. Wall thickness is moderately increased. Systolic function is hyperdynamic. The estimated ejection fraction is >85%. Wall motion is normal; there are no regional wall motion abnormalities. - Right ventricle: The cavity size is normal. Systolic function is normal. Systolic pressure is moderately increased. - Mitral valve: The Mitral valve annulus appears moderately to severely calcified. The leaflets are mildly calcified. Non-rheumatic mitral stenosis. Hyperdynamic LVEF may overestimate severity (could be less severe) based on mean gradient The findings are consistent with moderate to severe stenosis. The pressure half-time is 120 ms. The mean diastolic gradient is 11.0 mm Hg. The valve area is 1.6 cm^2. - Aortic valve: The findings are consistent with mild to moderate stenosis. The peak systolic velocity is 3.1 m/sec. The mean systolic gradient is 23.0 mm Hg. The valve area by thevelocity-time integral method is 1.66 cm^2. - Pulmonary arteries: Systolic pressure is moderately increased. EKG Data: ekg 05/08/2019: NSR 90 bpm, incomplte RBBB with LAD later sinus tachycardia 121 bpm, similar 05/09/2019: NSR 98 bpm, incomplete rbbb, lad Assessment/Plan I do not think patient is having a type 1 plaque disruption ACS. I think his elevated troponin is related to myocyte injury and/or type 2 CO secondary to another acute process. I recommend empiric anticoagulation and evaluating for a pulmonary embolism (discussed on phone with LAITH Harman). If this is unremarkable, his valvular heart disease could be playing a role post IF fluid and he may benefit from a negative intrope beta-lina to improve his diastolic filling time with regards to mitral stenosis. Despite elevated CRP, a normal wbc and no fever argues against a more systemic bacterial infection.
--- NOTE | 2019-05-09 12:58 | PN ---
Subjective Date of Service: 05/09/19 Length of Stay: 1 Days Neurology is following for the evaluation of confusion Interval History: The patient did require admission last night for tachycardia. He was found to have an elevated CRP without any fever or leukocytosis. I met the patient's daughter today who was at bedside. The family and Dr. Perea noticed that the cellulites in the left arm was getting worse last night. He was started on Rocephin. He denied any headache or neck stiffness. He is pleasant and has no complaints. He did report that he has had numerous bites and scratches from his cat the past few months. The cellulitis on the left forearm was a result of his cat scratching him. The patient developed waxing and waning delirium throughout the night. He was talking about his younger brother and looking around to see where his cat was located. This would last minutes or hours. He was restless throughout the night. The confusion improved this morning, but he was slightly confused and tried to get out of bed before I assess him. He denied any focal weakness or paresthesia. He denied any visual disturbance, hearing loss, or visual or auditory hallucinations. Labs, imaging, or other diagnostic testing: Troponin: 0.21 to 0.12 CRP: 97.26 B12: 510 TSH: 2.24 Influenza A&B: negative Brain CT head without contrast 05/08/19: diffuse cortical atrophy. Review of Systems: Denied CP, SOB, or palpitations. Objective Active Medications: Aspirin (Aspirin Tab*) 325 mg PO DAILY [facility] Last Admin: 05/09/19 08:30 Dose: 325 mg Bicalutamide (Casodex (Nf)) 50 mg PO DAILY [facility]; Protocol Last Admin: 05/09/19 08:30 Dose: 50 mg Heparin Sodium (Porcine) (Heparin Vial(*)) 5,000 units SUBCUT Q8HR [facility] Last Admin: 05/09/19 05:31 Dose: 5,000 units Ceftriaxone Sodium 1 gm/ (Sodium Chloride) 50 mls @ 100 mls/hr IVPB Q24H [facility] Last Admin: 05/08/19 20:30 Dose: 100 mls/hr Losartan Potassium (Cozaar Tab*) 50 mg PO DAILY [facility] Last Admin: 05/09/19 08:30 Dose: 50 mg Metoprolol Tartrate (Lopressor Tab*) 25 mg PO BID [facility] Vital Signs 05/08/19 05/08/19 05/08/19 12:48 13:09 13:18 Temperature Pulse Rate 94 98 Respiratory 24 24 19 Rate Blood Pressure 175/85 148/82 (mmHg) O2 Sat by Pulse 93 95 Oximetry 05/08/19 05/08/19 05/08/19 13:48 14:00 14:18 Temperature Pulse Rate 93 93 Respiratory 26 17 32 Rate Blood Pressure 125/89 175/89 (mmHg) O2 Sat by Pulse 95 92 Oximetry 05/08/19 05/08/19 05/08/19 14:48 15:00 15:18 Temperature Pulse Rate 101 98 105 Respiratory 18 15 36 Rate Blood Pressure 161/98 186/82 (mmHg) O2 Sat by Pulse 89 93 95 Oximetry 05/08/19 05/08/19 05/08/19 15:22 15:48 16:00 Temperature Pulse Rate 103 101 Respiratory 31 28 30 Rate Blood Pressure 179/108 196/89 (mmHg) O2 Sat by Pulse 94 94 Oximetry 05/08/19 05/08/19 05/08/19 16:03 16:08 16:18 Temperature Pulse Rate 99 95 101 Respiratory 32 29 21 Rate Blood Pressure 171/84 179/88 177/90 (mmHg) O2 Sat by Pulse 95 92 93 Oximetry 05/08/19 05/08/19 05/08/19 16:33 16:44 16:48 Temperature 99.5 F Pulse Rate 103 126 Respiratory 28 23 Rate Blood Pressure 168/96 156/113 (mmHg) O2 Sat by Pulse 94 95 Oximetry 05/08/19 05/08/19 05/08/19 16:56 17:00 17:19 Temperature Pulse Rate 127 122 121 Respiratory 24 16 20 Rate Blood Pressure 160/100 183/88 (mmHg) O2 Sat by Pulse 91 94 93 Oximetry 05/08/19 05/08/19 05/08/19 18:00 18:18 18:48 Temperature Pulse Rate 122 118 118 Respiratory 23 39 28 Rate Blood Pressure 170/88 148/98 (mmHg) O2 Sat by Pulse 93 93 92 Oximetry 05/08/19 05/08/19 05/08/19 19:00 19:18 19:22 Temperature 99.5 F Pulse Rate 122 121 122 Respiratory 43 31 24 Rate Blood Pressure 178/91 148/98 (mmHg) O2 Sat by Pulse 92 92 92 Oximetry 05/08/19 05/08/1905/07/20 19:37 20:25 23:24 Temperature 99.0 F 97.9 F Pulse Rate 117 109 Respiratory 26 20 Rate Blood Pressure 182/87 190/82 118/46 (mmHg) O2 Sat by Pulse 95 95 Oximetry 05/09/19 03:20 Temperature 98.1 F Pulse Rate 97 Respiratory 20 Rate Blood Pressure 125/71 (mmHg) O2 Sat by Pulse 93 Oximetry Intake and Output Last 24 Hours 05/07/19 05/08/19 05/09/19 05/10/19 06:59 06:59 06:59 06:59 Intake Total 2049 360 Balance 2049 360 Weight 173 lb 1.6 oz Intake: IV Fluids 1999 IVPB 50 Oral 0 360 Oxygen Devices in Use Now: None Neurology Exam: General: Ill appearing elderly man who appears as stated age. HEENT: Normocephelic/atraumatic, sclera anicteric, mucous membranes moist Neck: Supple Skin: erythema in the left extensor surface of the left distal forearm. Extremities: No clubbing, cyanosis, or edema Neurological Findings: Awake, alert, and oriented to person, place, and year. He has psychmotor slowing manifesting as memory impairment. Speech: fluent without dysarthria, repetition intact Cranial Nerve: PERRL, EOM intact, VFF, no nystagmus, face symmetric bilaterally Motor: s/s throughout, proximal and distal extremities x4 tone/bulk normal Sensation: intact to LT/PP bilaterally upper and lower extremities Deep Tendon Reflex: 1+ symmetric in the upper/lower extremities, Babinski - down going Finger to nose, rapid alternating movements intact without tremor, no dysdiadochokinesia Gait: deferred Result Diagrams: 05/09/19 06:17 05/09/19 06:17 Additional Lab and Data: Lab Results 05/08/19 Range/Units 09:35 Urine Color Yellow Urine Appearance Cloudy Urine pH 7.0 (5-9) Ur Specific [place] 1.020 (1.010-1.030) Urine Protein Negative (Negative) Urine Ketones Negative (Negative) Urine Blood Negative (Negative) Urine Nitrate Negative (Negative) Urine Bilirubin Negative (Negative) Urine Urobilinogen Negative (Negative) Ur Leukocyte Esterase Negative (Negative) Urine Glucose Negative (Negative) Assessment/Plan Mr. Rajinder Toure is an 83-year-old man with a history of mild cognitive impairment who presented to [facility] on 05/08/2019 with confusion and disorientation. The patient was found dehydrated and had YASMIN. He received IV fluids but then developed tachyapnea and tachycardia. He has worsening of the cellulites in the left forearm and elevated CRP. The patient does not complain and is pleasantly demented on examination. 1. Acute metabolic encephalopathy. Dehydration is another cause for his worsening confusion. He had delirium that fluctuated yesterday. The confusion is better today than yesterday, but he is still not at baseline. The patient denied any headaches or nuchal rigidity thus I don't suspect he has meningitis. He did have a cat bite/scratch which raises the concern for cat scratch encephalitis (less likely). Recommendations: No need for MRI brain or LP testing for now. If he doesn't get better clinically with the current antibiotic regiment, we need to re-evaluate and possiblty move forward wih an LP. - Continue supportive care, neuro checks every 4 hours, and delirium measures with frequent orientation. - Blood cultures x 2 if not yet obtained - Discharge home when deemed ready by the priary team - Continue aspirin 324 daily. - We will continue to follow
[2019-05-09] MEDS: Metoprolol Tartrate TAB* 25 MG PO SCH ×2 (13:28→19:49)
[2019-05-09] MEDS: cefTRIAXone(*) 1 GM in NS 0.9% 50 ML* 50 ML IVPB SCH (19:45)
--- NOTE | 2019-05-09 20:05 | PN ---
Subjective Date of Service: 05/09/19 Interval History: Patient has dementia at baseline and his daughter states he is improved today but still not to his mental status baseline. He tells me he has only been coughing recently and believes it's due to his cat. Daughter states that he has had a chronic cough for several years and is unclear why he states this. She tells me his cough today is as usual. He denies fever/chills, abd pain, difficulty breathing, chest pain. Objective Active Medications: Aspirin (Aspirin Tab*) 325 mg PO DAILY [facility] Last Admin: 05/09/19 08:30 Dose: 325 mg Bicalutamide (Casodex (Nf)) 50 mg PO DAILY [facility]; Protocol Last Admin: 05/09/19 08:30 Dose: 50 mg Heparin Sodium (Porcine) (Heparin Vial(*)) 5,000 units SUBCUT Q8HR [facility] Last Admin: 05/09/19 13:28 Dose: 5,000 units Ceftriaxone Sodium 1 gm/ (Sodium Chloride) 50 mls @ 100 mls/hr IVPB Q24H [facility] Last Admin: 05/09/19 19:45 Dose: 100 mls/hr Losartan Potassium (Cozaar Tab*) 50 mg PO DAILY [facility] Last Admin: 05/09/19 08:30 Dose: 50 mg Metoprolol Tartrate (Lopressor Tab*) 25 mg PO BID [facility] Last Admin: 05/09/19 19:49 Dose: 25 mg Vital Signs - 8 hr 05/09/19 15:15 Temperature 98.9 F Pulse Rate 73 Respiratory 18 Rate Blood Pressure 146/71 (mmHg) O2 Sat by Pulse 93 Oximetry Oxygen Devices in Use Now: None Appearance: Elderly white male, sitting upright in bed, appearing comfortable and in NAD Eyes: No Scleral Icterus, - - PERRL Ears/Nose/Mouth/Throat: Mucous Membranes Moist Neck: Trachea Midline Respiratory: Symmetrical Chest Expansion and Respiratory Effort, - - crackles in right lower lung base and otherwise clear Cardiovascular: RRR, - - systolic murmur Abdominal: - - abd soft, nontender, nondistended; no suprapubic tenderness Extremities: No Edema, No Clubbing, Cyanosis Skin: No Rash or Ulcers, - - very subtle blanchable erythema to LUE superior to wrist, not expanding past markings Neurological: - - alert and oriented to self Result Diagrams: 05/09/19 06:17 05/09/19 06:17 Additional Lab and Data: Lab Results 05/08/19 Range/Units 09:35 Urine Color Yellow Urine Appearance Cloudy Urine pH 7.0 (5-9) Ur Specific [place] 1.020 (1.010-1.030) Urine Protein Negative (Negative) Urine Ketones Negative (Negative) Urine Blood Negative (Negative) Urine Nitrate Negative (Negative) Urine Bilirubin Negative (Negative) Urine Urobilinogen Negative (Negative) Ur Leukocyte Esterase Negative (Negative) Urine Glucose Negative (Negative) Microbiology and Other Data: Microbiology 05/08/19 17:57 Aerobic Blood Culture - Preliminary Blood Venous No Growth Day 1 Anaerobic Blood Culture - Preliminary No Growth Day 1 05/08/19 17:57 Aerobic Blood Culture - Preliminary Blood Venous No Growth Day 1 Anaerobic Blood Culture - Preliminary No Growth Day 1 Assess/Plan/Problems-Billing Assessment: 83 yo male with PMHx dementia, prostate CA, depression, HTN presents with altered mental status and developed shortness of breath after receiving IV fluid in the ED. - Patient Problems (1) Dyspnea Current Visit: Yes Status: Acute Code(s): R06.00 - DYSPNEA, UNSPECIFIED SNOMED Code(s): 611661009 Comment: -resolved today -due to tachycardia and presenting dyspnea, and RBBB unclear if new, concerned for PE -CTA neg for PE -likely due to mild pulm edema from IVF bolus in setting of mitral stenosis (as demonstrated on TTE) (2) Altered mental status Current Visit: Yes Status: Acute Code(s): R41.82 - ALTERED MENTAL STATUS, UNSPECIFIED SNOMED Code(s): 139301498 Comment: -unclear etiology at this time -CT brain neg for acute abnormality -improved today but not at baseline -possibly ESTIVEN from augmentin, which has been discontinued -no additional offending infection suspected aside from LUE cellulitis as blood cx neg, urine cx neg, and CXR without evidence for PNA -appreciate neuro consult, no need for LP or MRI at this time (3) Left arm cellulitis Current Visit: Yes Status: Acute Code(s): L03.114 - CELLULITIS OF LEFT UPPER LIMB SNOMED Code(s): 402498747 Comment: -initially on augmentin at home, switching due to concerns for ESTIVEN of AMS -continue ceftriaxone (4) Prostate cancer Current Visit: Yes Status: Acute Code(s): C61 - MALIGNANT NEOPLASM OF PROSTATE SNOMED Code(s): 618273460 Comment: -continue casodex (5) Hypertension Current Visit: Yes Status: Acute Code(s): I10 - ESSENTIAL (PRIMARY) HYPERTENSION SNOMED Code(s): 73943074 Comment: -losartan, metoprolol (6) DVT prophylaxis Current Visit: Yes Status: Acute Code(s): Z29.9 - ENCOUNTER FOR PROPHYLACTIC MEASURES, UNSPECIFIED SNOMED Code(s): 077749285 Comment: -HSQ (7) Full code status Current Visit: Yes Status: Acute Code(s): Z78.9 - OTHER SPECIFIED HEALTH STATUS SNOMED Code(s): 387122371 Status and Disposition: pending PT eval
[2019-05-10] MEDS: Heparin VIAL(*) 5000 UNITS/ML VIAL (FIVE THOUSAND) SUBCUT SCH ×2 (05:32→14:15)
[2019-05-10] MEDS: Metoprolol Tartrate TAB* 25 MG PO SCH (09:30)
[2019-05-10] MEDS: Aspirin TAB* 325 MG PO SCH (09:30)
[2019-05-10] MEDS: BICALUTAMIDE 50 MG PO SCH (09:30)
[2019-05-10] MEDS: Losartan TAB* 25 MG PO SCH (09:30)
--- NOTE | 2019-05-10 09:32 | PN ---
Subjective Date of Service: 05/10/19 Interval History: f/u shortness of breath after IVF, mitral stenosis patient has no current complaints There was no cardiac damage this admission. His cardiac status is stable. Discussed at length with patient, and daughter Medications Active Medications: Aspirin (Aspirin Tab*) 325 mg PO DAILY [facility] Last Admin: 05/09/19 08:30 Dose: 325 mg Bicalutamide (Casodex (Nf)) 50 mg PO DAILY [facility]; Protocol Last Admin: 05/09/19 08:30 Dose: 50 mg Heparin Sodium (Porcine) (Heparin Vial(*)) 5,000 units SUBCUT Q8HR [facility] Last Admin: 05/10/19 05:32 Dose: 5,000 units Ceftriaxone Sodium 1 gm/ (Sodium Chloride) 50 mls @ 100 mls/hr IVPB Q24H [facility] Last Admin: 05/09/19 19:45 Dose: 100 mls/hr Losartan Potassium (Cozaar Tab*) 50 mg PO DAILY [facility] Last Admin: 05/09/19 08:30 Dose: 50 mg Metoprolol Tartrate (Lopressor Tab*) 25 mg PO BID [facility] Last Admin: 05/09/19 19:49 Dose: 25 mg Objective Vital Signs: Temp Pulse Resp BP Pulse Ox 97.0 F 78 20 131/63 96 05/10/19 03:15 05/10/19 03:15 05/10/19 03:15 05/10/19 03:15 05/10/19 03:15 Oxygen Devices in Use Now: None Appearance: not toxic appearing or acutely distressed Respiratory: Symmetrical Chest Expansion and Respiratory Effort Cardiovascular: RRR, - Extremities: No Edema Skin: No Rash or Ulcers Neurological: - - awake, alert Laboratory Results: 05/09/19 06:17 05/09/19 06:17 Total Bilirubin 0.70 mg/dL (0.2-1.0) 05/08/19 10:42 AST 13 U/L (13-39) 05/08/19 10:42 ALT 6 U/L (7-52) L 05/08/19 10:42 Alkaline Phosphatase 54 U/L (34-104) 05/08/19 10:42 Total Protein 6.8 g/dL (6.4-8.9) 05/08/19 10:42 Albumin 3.8 g/dL (3.2-5.2) 05/08/19 10:42 Globulin 3.0 g/dL (2-4) 05/08/19 10:42 Albumin/Globulin Ratio 1.3 (1-3) 05/08/19 10:42 TSH 2.24 mcIU/mL (0.34-5.60) 05/08/19 10:42 05/08/19 05/08/19 05/09/19 10:42 17:56 06:17 Troponin I 0.02 0.03 H* 0.21 H* 05/09/19 09:25 Troponin I 0.19 H* Diagnostic Imaging: Transthoracic Echocardiogram Study Date: 05/09/2019 Summary: - Left ventricle: The cavity size is below normal. Wall thickness is moderately increased. Systolic function is hyperdynamic. The estimated ejection fraction is >85%. Wall motion is normal; there are no regional wall motion abnormalities. - Right ventricle: The cavity size is normal. Systolic function is normal. Systolic pressure is moderately increased. - Mitral valve: The Mitral valve annulus appears moderately to severely calcified. The leaflets are mildly calcified. Non-rheumatic mitral stenosis. Hyperdynamic LVEF may overestimate severity (could be less severe) based on mean gradient The findings are consistent with moderate to severe stenosis. The pressure half-time is 120 ms. The mean diastolic gradient is 11.0 mm Hg. The valve area is 1.6 cm^2. - Aortic valve: The findings are consistent with mild to moderate stenosis. The peak systolic velocity is 3.1 m/sec. The mean systolic gradient is 23.0 mm Hg. The valve area by thevelocity-time integral method is 1.66 cm^2. - Pulmonary arteries: Systolic pressure is moderately increased. ' CTA chest 05/09/2019 IMPRESSION: 1. NO PULMONARY ARTERIAL FILLING DEFECT TO SUGGEST PULMONARY EMBOLISM. 2. BIBASILAR ATELECTASIS EKG Data: ekg 05/08/2019: NSR 90 bpm, incomplte RBBB with LAD later sinus tachycardia 121 bpm, similar 05/09/2019: NSR 98 bpm, incomplete rbbb, lad Assessment/Plan - continue metoprolol to keep HR low and help diastolic filling time with mitral stenosis - Can can be discharged from a cardiac standpoint
--- NOTE | 2019-05-10 11:10 | PN ---
Subjective Date of Service: 05/10/19 Length of Stay: 2 Days Neurology is following for acute increase in confusion. Interval History: The patient slept well overnight. His daughter and spouse stated that he is more awake and alert. He still has confusion but better than it was yesterday. His daughter stated that she has noticed a more rapid decline in his memory over the past one year. She thinks that he is progressing faster than anticipated. The rash has improved in appearance. Review of Systems: Denied CP, SOB, or palpitations. Objective Active Medications: Aspirin (Aspirin Tab*) 325 mg PO DAILY [facility] Last Admin: 05/10/19 09:30 Dose: 325 mg Bicalutamide (Casodex (Nf)) 50 mg PO DAILY [facility]; Protocol Last Admin: 05/10/19 09:30 Dose: 50 mg Heparin Sodium (Porcine) (Heparin Vial(*)) 5,000 units SUBCUT Q8HR [facility] Last Admin: 05/10/19 05:32 Dose: 5,000 units Ceftriaxone Sodium 1 gm/ (Sodium Chloride) 50 mls @ 100 mls/hr IVPB Q24H [facility] Last Admin: 05/09/19 19:45 Dose: 100 mls/hr Losartan Potassium (Cozaar Tab*) 50 mg PO DAILY [facility] Last Admin: 05/10/19 09:30 Dose: 50 mg Metoprolol Tartrate (Lopressor Tab*) 25 mg PO BID [facility] Last Admin: 05/10/19 09:30 Dose: 25 mg Vital Signs 05/09/19 05/09/19 05/09/19 11:15 15:15 19:15 Temperature 98.7 F 98.9 F 98.5 F Pulse Rate 105 73 87 Respiratory 20 18 18 Rate Blood Pressure 156/93 146/71 162/81 (mmHg) O2 Sat by Pulse 96 93 94 Oximetry 05/09/19 05/09/19 05/10/19 20:00 23:15 03:15 Temperature 97.4 F 97.0 F Pulse Rate 76 78 Respiratory 18 20 20 Rate Blood Pressure 137/78 131/63 (mmHg) O2 Sat by Pulse 99 96 Oximetry 05/10/19 07:15 Temperature 98.9 F Pulse Rate 89 Respiratory 16 Rate Blood Pressure 180/89 (mmHg) O2 Sat by Pulse 91 Oximetry Intake and Output Last 24 Hours 05/08/19 05/09/19 05/10/19 05/11/19 06:59 06:59 06:59 06:59 Intake Total 2049 1209 120 Balance 2049 1209 120 Weight 173 lb 1.6 oz Intake: IV Fluids 1999 249 IVPB 50 Oral 0 960 120 Other: # Voids 2 Oxygen Devices in Use Now: None Neurology Exam: General: Ill appearing elderly man who appears as stated age. HEENT: Normocephelic/atraumatic, sclera anicteric, mucous membranes moist Neck: Supple Skin: erythema in the left extensor surface of the left distal forearm. Extremities: No clubbing, cyanosis, or edema Neurological Findings: Awake, alert, and oriented to person, place, and year. He has psychmotor slowing manifesting as memory impairment. Speech: fluent without dysarthria, repetition intact Cranial Nerve: PERRL, EOM intact, VFF, no nystagmus, face symmetric bilaterally Motor: s/s throughout, proximal and distal extremities x4 tone/bulk normal Sensation: intact to LT/PP bilaterally upper and lower extremities Deep Tendon Reflex: 1+ symmetric in the upper/lower extremities, Babinski - down going Finger to nose, rapid alternating movements intact without tremor, no dysdiadochokinesia Gait: deferred Result Diagrams: 05/09/19 06:17 05/09/19 06:17 Additional Lab and Data: Lab Results 05/08/19 Range/Units 09:35 Urine Color Yellow Urine Appearance Cloudy Urine pH 7.0 (5-9) Ur Specific [place] 1.020 (1.010-1.030) Urine Protein Negative (Negative) Urine Ketones Negative (Negative) Urine Blood Negative (Negative) Urine Nitrate Negative (Negative) Urine Bilirubin Negative (Negative) Urine Urobilinogen Negative (Negative) Ur Leukocyte Esterase Negative (Negative) Urine Glucose Negative (Negative) Microbiology and Other Data: Microbiology 05/08/19 17:57 Aerobic Blood Culture - Preliminary Blood Venous No Growth Day 1 Anaerobic Blood Culture - Preliminary No Growth Day 1 05/08/19 17:57 Aerobic Blood Culture - Preliminary Blood Venous No Growth Day 1 Anaerobic Blood Culture - Preliminary No Growth Day 1 Assessment/Plan Mr. Rajinder Toure is an 83-year-old man with a history of mild cognitive impairment who presented to [facility] on 05/08/2019 with confusion and disorientation. The patient was found dehydrated and had YASMIN. He received IV fluids but then developed tachyapnea and tachycardia. He has worsening of the cellulites in the left forearm and elevated CRP. The patient does not complain and is pleasantly demented on examination. 1. Acute toxic-metabolic encephalopathy. Augmentin therapy, YASMIN, and dehydration are all attributing to his encephalopathy. The patient denied any headaches or nuchal rigidity thus I don't suspect he has meningitis. 2. Left arm cellulites- improving. 3. History of mild cognitive impairment. I suspect he may have progressed to dementia. TSH and B12 are normal. Further outpatient testing is recommended. Recommendations: - Repeat a CRP today to make sure it's trending down. Defer further antibiotic therapy to the primary team. - We should add Augmentin to his allergy list. - Discharge home when deemed ready by the primary team - Continue aspirin 324 daily. - Follow-up with Dr. Segura in 8 weeks. I will request a follow-up appointment. - I will sign off.
[2019-05-10 16:01] VITALS: BP 143/73
--- NOTE | 2019-05-11 02:21 | DS ---
CC: Dr. Bello * DISCHARGE SUMMARY: DATE OF ADMISSION: 05/08/19 DATE OF DISCHARGE: 05/10/19 ATTENDING PHYSICIAN WHILE IN THE HOSPITAL: Dr. Hui Marina * (dictated by LAITH Juarez). PRIMARY CARE PROVIDER: Dr. Bello. OUTPATIENT NEUROLOGIST: Dr. Segura. CONSULTING NEUROLOGIST: Dr. Greco. PRIMARY DIAGNOSES: 1. Acute altered mental status changes from baseline, possibly adverse reaction to Augmentin. 2. Dyspnea likely field representatives director of mild pulmonary edema in the setting of mitral valve stenosis, dyspnea resolved. SECONDARY DIAGNOSES: 1. Dementia, able to perform activities of daily living but typically not oriented to time at baseline. 2. Prostate cancer. 3. Depression. 4. Hypertension. PERTINENT STUDIES WHILE IN THE HOSPITAL: Transthoracic echocardiogram on : EF of 85%, no regional wall motion abnormalities, LV diastolic function is indeterminate, mitral valve with [id number] calcification, hyperdynamic LVEF possibly estimates severity but findings are consistent with moderate-to- severe stenosis. Aortic valve consistent with [id number]-[id number] stenosis. Please see full report for further details. Brain CT on 05/08/19, impression: There is no evidence of intracranial mass or hemorrhage. Chest x-ray, impression: No active cardiopulmonary disease. CTA of the chest on 05/09/19, impression: No pulmonary arterial filling defect to suggest PE. Bibasilar atelectasis. HISTORY OF PRESENT ILLNESS/HOSPITAL COURSE: Mr. Toure is an 83-year-old white male with past medical history significant for dementia, prostate cancer, depression, hypertension, who presents to the emergency department for increased confusion per family. The patient had been started on Augmentin for left upper extremity cellulitis on 05/02/19 and the patient began having increased confusion 3 to 4 days after that point. The patient was admitted to the hospital and he was evaluated by our consulting neurologist, Dr. Greco. He believed it was quite possible that this was representing an adverse event of the Augmentin that he was taking. There was some concern for possible toxic metabolic encephalopathy secondary to infection; however, his blood culture was negative. His urinalysis was unremarkable and therefore not sent for urine culture. He was afebrile during the entirety of his hospital stay and the leukocytosis. He did have an elevated CRP, but this is likely field representatives director of his left upper extremity cellulitis. Initially in the emergency department, it appeared worse than it had been. During his hospital stay, this greatly improved and he had very mild erythema, which did not extend past the marked borders, which were approximately 3 inches in diameter just above his left wrist. The patient's Augmentin was discontinued upon presentation to the hospital and he did have coverage with ceftriaxone. On day of discharge, the patient's daughter and did agree that his mental status was near his baseline and felt he was safe to return home. He was evaluated by Physical Therapy, who agreed that home PT would be reasonable for this patient. The patient developed dyspnea after large volume IV fluid bolus in the emergency department. I believe this was field representatives director of mild pulmonary edema considering that he does have known mitral stenosis as well as aortic stenosis. He was negative for PE, which I was concerned for due to his dyspnea and tachycardia, but both of these resolved. He was evaluated by brick veneer maker, Dr. Iván Perez, who started a low-dose beta lina and did ultimately increase it for further control of his heart rate especially considering in the setting of his valvular abnormalities. By the day of discharge, the patient appears at his baseline. I have no concerns for acute illness and it appears his cellulitis is greatly improved and the patient has no complaints. He did at times have fluctuating blood pressures though it was normotensive at times. His home losartan was continued during his hospitalization but despite this still occasionally had systolic blood pressure in the 180s, but did frequently have normotensive blood pressure readings as well. This may have been related to stress of the hospital stay. The patient had a mild acute kidney injury during his hospitalization, which did downtrend somewhat but I did not want to give too aggressive fluids considering the dyspnea that had recurred after aggressive fluid hydration. I believe this is prerenal in the setting of his recent illness. Regarding his altered mental status changes, at this point, Dr. Greco does not recommend any further workup as the patient is improving. At this point, no LP or MRI is recommended. Additionally, during this hospitalization, the patient had a troponin, which was elevated to 0.21, which later downtrended. The patient was evaluated by Dr. Perez as previously mentioned and he had no concerns for ACS and believed this is related to acute ischemic demand. His EKG did demonstrate an incomplete right bundle branch block, which we are unsure if is new as there are no EKGs in the EMR, which is additionally why CT of the chest was performed to rule out PE. PHYSICAL EXAMINATION ON THE DAY OF DISCHARGE: General: Elderly white male, lying in the hospital bed, appearing comfortable, no distress. Lungs: Clear to auscultation throughout. Cardio: Systolic murmur. Regular rate and rhythm. Abdomen: Soft, nontender, nondistended. Extremities: Very faint erythema to the left upper extremity superior to the wrist. It is blanchable and nontender to palpation. No clubbing, cyanosis, or edema of any of the extremities. Neuro: The patient is alert, oriented to self. Tells me he is in [facility] but was not able to give me further information regarding his location, is not oriented to time. DISCHARGE PLAN: The patient is advised to follow up with his primary care provider within 1 week. At this time, I recommend a repeat BMP to follow his kidney function. If there are ongoing issues of any worsening, then perhaps MRI or LP should be considered. The patient's family is advised to return the patient to the emergency department if he is having acute altered mental status changes again, if he is having fever or chills, abdominal pain, worsening of the erythema of his left arm as well as red streaking of his extremities or other concerning symptoms. The patient's family expressed some concerns regarding following up with Dr. Segura outpatient only twice a year. I reassured them that I believe this is still appropriate, though I did advise them if there are seeking further support in the community that they could investigate referral to a geriatric psychiatrist; however, I did advise them there are none that are local. The patient, at this point, seems to have appropriate level of care and I see no issues with his current followup plan. Additionally, regarding the patient' s blood pressure, I did provide the family with blood pressure kit and I advised them to check blood pressure every other day to follow up with Dr. Bello to evaluate if additional medication changes need to be made for his hypertension. Visiting nurses service has been established for home care and to perhaps establish home PT as well. MEDICATIONS: New medications: 1. Cefdinir 300 mg p.o. b.i.d. x2 days. 2. Metoprolol tartrate 25 mg p.o. daily. Continued home medications: 1. Caltrate 600 plus D tablet, 1 tab p.o. daily. 2. Aspirin 325 mg p.o. daily. 3. Fish oil 1200 mg p.o. daily. 4. Losartan 50 mg p.o. daily. 5. Naproxen 220 mg p.o. daily p.r.n. pain. 6. Celexa 20 mg p.o. daily. 7. Casodex 50 mg p.o. daily. DISCHARGE ACTIVITY: The patient may return to normal activity as tolerated. DISCHARGE DIET: The patient may have a regular unrestricted diet. CONDITION ON DISCHARGE: Improved. DISPOSITION: Home. TIME SPENT: Approximately 40 minutes was spent on this discharge, approximately half the time was spent at bedside evaluating the patient and discussing the plan of care and counseling the family. LAITH JUAREZ [id number]/[facility] #: [id number] MTDD
== END 2019-05-10 15:45 | disposition home health service (06) | DRG 947 ==
LOC: ED 09:19 → MEDTELE 17:43 → OBSVTOIN 05-09 16:00
PROVIDERS: ADMIT Hospitalist; ATTEND Internal Medicine
DX: R41.82 Altered mental status, unspecified (principal); J81.0 Acute pulmonary edema; N17.9 Acute kidney failure, unspecified; L03.114 Cellulitis of left upper limb; F05 Delirium due to known physiological condition; T36.0X5A Adverse effect of penicillins, initial encounter; T36.1X5A Adverse effect of cephalosporins and other beta-lactam antibiotics, initial encounter; E86.0 Dehydration; I08.0 Rheumatic disorders of both mitral and aortic valves; I10 Essential (primary) hypertension; F32.9 Major depressive disorder, single episode, unspecified; C61 Malignant neoplasm of prostate; R00.0 Tachycardia, unspecified; I45.10 Unspecified right bundle-branch block; R79.89 Other specified abnormal findings of blood chemistry; F03.90 Unspecified dementia, unspecified severity, without behavioral disturbance, psychotic disturbance, mood disturbance, and anxiety; Z91.013 Allergy to seafood; Z87.891 Personal history of nicotine dependence; Z79.82 Long term (current) use of aspirin; Z79.899 Other long term (current) drug therapy; Y92.9 Unspecified place or not applicable
CPT/HCPCS: 36415; 70450; 71045; 71275; 80048; 80053; 81003; 82607; 83735; 84443; 84484; 85025; 86140; 87040; 93005; 93306; 96365; 96375; 99284; A9270-GY; G0378; J0360; J0696; J1644; Q9967

== ENCOUNTER 2019-05-15 10:46 | Emergency (ER) | payer MEDICARE, OTHER ==
--- OUTSIDE RECORDS SUMMARY | 2019-05-15 10:53 | XMS REPORT ---
:1935 Author Organization [facility] Care Team Providers Name Role Phone Unavailable Unavailable Unavailable Problems Condition Condition Condition Status Onset Resolution Last Treating Comments Name Details Category Date Date Treatment Clinician Date Cellulitis Cellulitis Diagnosis Active 2020-0 Jolynn of left of left 05-12 Wendela upper limb upper limb [id number] Allergies, Adverse Reactions, Alerts Allergy Name Allergy Status Severity Reaction(s) Onset Inactive Treating Comments Type Date Date Clinician shellfish Base Active Severe Anaphylaxis 2020-0 Anitha Beam derived Ingredient 3- amoxicillin Base Active Unknown altered 2020-0 Anitha Beam Ingredient mental 3 status clavulanic Base Active Unknown Reaction 2019-0 Anitha Beam acid Ingredient Unknown 05-12 Medications Ordered Filled Start Stop Current Ordering Indication Dosage Frequency Signature Comments Components Medication Medication Date Date Medication? Clinician (SIG) Name Name No Known No Known No None None None Medications Medications For This For This Patient Patient Procedures This patient has no known procedures. Results This patient has no known results.
--- OUTSIDE RECORDS SUMMARY | 2019-05-15 10:53 | XMS REPORT ---
:1935 Author Organization [facility] Care Team Providers Name Role Phone Unavailable Unavailable Unavailable Problems Condition Condition Condition Status Onset Resolution Last Treating Comments Name Details Category Date Date Treatment Clinician Date Cellulitis Cellulitis Diagnosis Active 2020-0 Jolynn of left of left 05-12 Wendela upper limb upper limb [id number] Allergies, Adverse Reactions, Alerts Allergy Name Allergy [...]
[2019-05-15 11:25] VITALS: BP 135/80
--- NOTE | 2019-05-15 11:54 | UC ---
Abdominal Pain Male HPI - HPI Summary HPI Summary: 84-year-old male with history of dementia presents with his stating that the patient had an episode of left lower quadrant pain followed by an episode of vomiting earlier this morning. Patient states that the emesis was dark in color however he had been drinking a grape drink prior to vomiting. Patient was recently hospitalized from 05/08/2019 to 05/10/2023 dehydration and a possible reaction to Augmentin which she had been taking for some cellulitis. Patient is currently pain-free and without any nausea. Has had history of kidney stones but not for many years. No history of diverticulosis. Patient has appointment with his primary care provider on 05/20/2019. Denies fever, chills, weakness, dizziness, chest pain, shortness of breath, diarrhea, dysuria, frequency, urgency, or hematuria. - History of Current Complaint Chief Complaint: UCGI Stated Complaint: LEFT SIDED ABDOMINAL PAIN Time Seen by Provider: 05/15/19 11:40 Hx Obtained From: Patient Pain Intensity: 0 - Allergies/Home Medications Allergies/Adverse Reactions: Allergies Allergy/AdvReac Type Severity Reaction Status Date / Time shellfish derived Allergy Anaphylatic Verified 05/15/19 11:26 Shock amoxicillin [From Augmentin] AdvReac Altered Verified 05/15/19 11:26 Mental Status clavulanic acid AdvReac Altered Verified 05/15/19 11:26 [From Augmentin] Mental Status Home Medications: Home Medications Aspirin TAB* [Aspirin 325 MG TAB*] 325 mg PO DAILY 12/09/14 [History Confirmed 05/15/19] [place]-3/Dha/Epa/Fish Oil [Fish Oil 1,000 mg Softgel] 1,200 mg PO DAILY 12/09/14 [History Confirmed 05/15/19] Bicalutamide (NF) [Casodex (NF)] 50 mg PO DAILY 05/08/19 [History Confirmed 01/23] Ulisses/D3/Mag11/Zinc/Collection Officer/Simone/Bor [Caltrate 600+D Plus Tablet] 1 tab PO DAILY 05/07 [History Confirmed 05/15/19] Citalopram TAB* [Celexa TAB*] 20 mg PO DAILY 05/08/19 [History Confirmed ] Losartan Potassium [Cozaar] 50 mg PO DAILY 05/08/19 [History Confirmed 05/15/19] Blood Pressure Test Kit [Blood Pressure Kit] 1 each EVERY OTHER DAY #1 kit [Rx Confirmed 05/15/19] Metoprolol Tartrate TAB* [Lopressor TAB*] 25 mg PO BID #60 tab 05/10/19 [Rx Confirmed 05/15/19] PMH/Surg Hx/FS Hx/Imm Hx Cardiovascular History: Hypertension, Other - Valular disease GI/ History: Other - Prostate cancer Neurological History: Dementia Psychological History: Depression - Surgical History Surgery Procedure, Year, and Place: 1969 PILONIDAL CYST REMOVED - Family History Known Family History: Positive: Hypertension - Social History Alcohol Use: Rare Substance Use Type: None Smoking Status (MU): Former Smoker Review of Systems All Other Systems Reviewed And Are Negative: Yes Constitutional: Negative: Fever, Chills Respiratory: Positive: Negative Cardiovascular: Negative: Palpitations, Chest Pain Gastrointestinal: Positive: Abdominal Pain, Vomiting. Negative: Diarrhea, Nausea Genitourinary: Negative: Dysuria, Hematuria, Frequency, Urgency Musculoskeletal: Positive: Negative Neurological/Mental Status: Positive: Negative Is Patient Immunocompromised?: No Physical Exam - Summary Physical Exam Summary: GENERAL APPEARANCE: Alert and cooperative older adult male who appears to be in no acute distress. EYES: Conjunctiva clear. No drainage. EARS: External auditory canals and tympanic membranes clear, hearing grossly intact. NOSE: No nasal discharge. THROAT: Pharynx normal. No tonsilar inflammation, swelling, exudate, or lesions. Uvula midline. NECK: Neck supple, non-tender without lymphadenopathy. CARDIAC: Normal S1 and S2. Systolic murmur. Rhythm is regular. There is no peripheral edema, cyanosis or pallor. Extremities are warm and well perfused. Capillary refill is less than 2 seconds. Peripheral pulses intact. LUNGS: Clear to auscultation without rales, rhonchi, wheezing or diminished breath sounds. ABDOMEN: Positive bowel sounds. Soft, nondistended, nontender. No guarding or rebound. No masses or hepatosplenomegally. No CVA tenderness. MUSKULOSKELETAL: ROM intact to all extremities. No joint erythema or tenderness. Normal muscular development. Normal gait. SKIN: Skin normal color, texture and turgor with no lesions or eruptions. Triage Information Reviewed: Yes Vital Signs: Initial Vital Signs Temp 96.6 F 05/15/19 11:19 Pulse 86 05/15/19 11:19 Resp 16 05/15/19 11:19 BP 135/80 05/15/19 11:19 Pulse Ox 96 05/15/19 11:19 Vital Signs Reviewed: Yes Abd Pain Male Course/Dx - Course Course Of Treatment: 84-year-old male with history of dementia presents with his and daughter stating that the patient had an episode of left lower quadrant pain followed by an episode of vomiting earlier this morning. Patient states that the emesis was dark in color however he had been drinking a grape drink prior to vomiting. Patient was recently hospitalized from 05/08/2019 to 05/10/2023 dehydration and a possible reaction to Augmentin which she had been taking for some cellulitis. Patient is currently pain-free and without any nausea. Has had history of kidney stones but not for many years. No history of diverticulosis. Patient has appointment with his primary care provider on 05/20/2019. Denies fever, chills, weakness, dizziness, chest pain, shortness of breath, diarrhea, dysuria , frequency, urgency, or hematuria. Afebrile. Vital signs stable. Patient's exam was overall unremarkable including a soft, nondistended, nontender abdomen. [id number] urinalysis was performed and showed 3+ blood and 1+ protein. Reviewed results with the patient and family. We discussed that with the presence of blood that his pain could be related to a kidney stone however considering that the patient is presently pain-free and has a benign exam we discussed treatment options including watchful waiting versus further evaluation in the emergency room and the family is electing for the former. He is to follow-up with his primary care provider as scheduled. I have encouraged the family to have a low threshold for evaluation in the emergency room especially if his symptoms return or worsen. Anticipatory guidance and warning symptoms were reviewed with the family. Verbalized understanding and agreed with plan of care. - Differential Dx/Clinical Impression Differential Diagnosis/HQI/PQRI: Bowel Obstruction, Constipation, Diverticulitis , Ischemic Bowel, Pneumonia, Renal Colic, Urinary Tract Infection Provider Diagnosis: LLQ abdominal pain Discharge ED - Sign-Out/Discharge Documenting (check all that apply): Patient Departure All imaging exams completed and their final reports reviewed: No Studies - Discharge Plan Condition: Stable Disposition: HOME Patient Education Materials: Abdominal Pain (ED) Referrals: Nato Bello MD [Primary Care Provider] - 3 Days Additional Instructions: The urine test performed in the clinic today showed some blood but no evidence of infection. This could suggest a kidney stone however with your symptoms having resolved and your exam being overall unremarkable feel that it is reasonable to do some watchful waiting at this time with the understanding that any return or worsening of her symptoms will require evaluation in the emergency room. Be sure to drink plenty of fluids. Seek immediate medical attention in the emergency room if you develop fever greater than 100.5 F, have severe persistent abdominal pain, persistent vomiting , there is blood in your vomit or bowel movements, you have dark black tarry colored bowel movement, or any worsening of symptoms. - Billing Disposition and Condition Condition: STABLE Disposition: Home
== END 2019-05-15 13:15 | disposition home or self-care (01) ==
LOC: UCEAST 10:46
DX: R10.32 Left lower quadrant pain (principal); F03.90 Unspecified dementia, unspecified severity, without behavioral disturbance, psychotic disturbance, mood disturbance, and anxiety; R11.10 Vomiting, unspecified; I10 Essential (primary) hypertension; R10.9 Unspecified abdominal pain; F32.9 Major depressive disorder, single episode, unspecified; Z85.46 Personal history of malignant neoplasm of prostate; Z79.82 Long term (current) use of aspirin; Z79.899 Other long term (current) drug therapy; Z87.891 Personal history of nicotine dependence; Z91.013 Allergy to seafood; Z88.0 Allergy status to penicillin; Z87.442 Personal history of urinary calculi
CPT/HCPCS: 81003; 99211; G0463